=== PATIENT | female | born 2000 | race Caucasian/White ===

== ENCOUNTER 2025-07-01 08:40 | Emergency (ER) | payer BC, MEDICAID, SELFPAY ==
[2025-07-01 08:53] VITALS: BP 132/82; PULSE 95; RESP 17; TEMP 36.9; O2SAT 100; BMI 32.0
[2025-07-01 09:12] LABS: Hematocrit 39.7 % (36-47); Hemoglobin 13.30 g/dL (11.27-16.99); Mean Corpuscular HGB Conc 33.5 g/dL (30-55); Mean Corpuscular Hemoglobin 30.4 pg (27-33); Mean Corpuscular Volume 90.6 fl (85-98); Nucleated Red Blood Cells % 0 %; Platelet Count 254 10^3/cmm (157-399); Red Blood Count 4.38 10^6/uL (3.85-5.65); White Blood Count 9.09 10^3/uL (3.29-11.43)
--- NOTE | 2025-07-01 09:16 | ED_ITS ---
HPI - Headache 2 General: Chief Complaint: Headache Stated Complaint: Servre Headach, fever Time Seen by Provider: 07/01/25 08:49 History of Present Illness: 24-year-old female presents emergency ro om with complaint of headache began last night its more on the left side of her head no trauma. She has tried [id number] medications no relief she has had some photophobia and photophobia. She thought she might possibly be as well she has previously had a tubal ligation. No vomiting no diarrhea no fever sweats or chills. No associated neck pain Associated symptoms: Deny chest pain, fever(s) or rash Related Data Previous Rx's ?Medication ?Instructions ?Recorded promethazine 25 mg tablet 25 mg PO Q6H PRN nausea and 07/01/25 vomiting #20 tabs Allergies Allergy/AdvReac Type Severity Reaction Status Date / Time No Known Allergies Allergy Verified 07/01/25 08:56 Review of Systems 2 Const: Denies: fever(s) or chills Card: Denies: chest pain Resp: Denies: dyspnea GI: Denies: abdominal pain : Denies: dysuria, urinary frequency or urinary urgency Musc: Denies: neck pain or back pain Skin/Breast: Denies: rash Physical Exam 2 Const: COMMON NORMALS: no acute distress GENERAL APPEARANCE: cooperative and comfortable ORIENTATION/CONSCIOUSNESS: Yes awake, Yes oriented to person, Yes oriented to place and Yes oriented to time HENMT: COMMON NORMALS: normocephalic, atraumatic and hearing grossly normal bilaterally HEAD & SCALP: normocephalic and atraumatic Resp: COMMON NORMALS: normal respiratory effort, No retractions, No use of accessory muscles and clear to auscultation bilaterally AUSCULTATION: clear to auscultation bilaterally Cardio: COMMON NORMALS: regular rate, regular rhythm and No murmurs present (Cardio) RATE: regular rate RHYTHM: regular rhythm GI: COMMON NORMALS: Soft to palpation and No hepatosplenomegaly present A USCULTATION: Yes normoactive bowel sounds PALPATION: Yes Soft to palpation, No Tenderness to palpation present (GI), No Guarding due to palpation present (GI) and Yes No hepatosplenomegaly present Extremity: COMMON NORMALS: normal to inspection, capillary refill normal, no clubbing, cyanosis or edema, no calf tenderness and no pedal edema Neuro: SENSORIUM/ORIENTATION: Yes oriented to person, Yes oriented to place and Yes oriented to time Skin: COMMON NORMALS: no rashes or lesions noted GENERAL SKIN EXAM: no rashes or lesions noted Course 2 Vital Signs: Vital signs: Vital Signs Temperature 98.4 F 07/01/25 08:53 Pulse Rate 74 07/01/25 11:15 Respiratory Rate 17 07/01/25 08:53 Blood Pressure 111/65 07/01/25 11:15 Pulse Oximetry 100 07/01/25 11:15 Oxygen Delivery Me thod Room Air 07/01/25 08:53 MDM - Headache Medical Decision Making Symptoms improved after IV fluids Toradol and promethazine will discharge patient home with promethazine to use as needed along with Tylenol and ibuprofen rest of the remainder the day follow-up with your primary care doctor if has persistent headaches reviewed labs with the patient. negative Medical Records I reviewed the patient's medical records. Lab Data I reviewed the patient's lab results. 07/01/25 09:05 07/01/25 09:05 Laboratory Results WBC 9.09 10^3/uL (3.29-11.43) 07/01/25 09:05 RBC 4.38 10^6/uL (3.85-5.65) 07/01/25 09:05 Hgb 13.30 g/dL (11.27-16.99) 07/01/25 09:05 Hct 39.7 % (36-47) 07/01/25 09:05 MCV 90.6 fl (85-98) 07/01/25 09:05 MCH 30.4 pg (27-33) 07/01/25 09:05 MCHC 33.5 g/dL (30-55) 07/01/25 09:05 RDW 11.9 % (12.1-15.1) L 07/01/25 09:05 Plt Count 254 10^3/cmm (157-399) 07/01/25 09:05 MPV 9.4 fL (7.4-10.4) 07/01/25 09:05 Neut % (Auto) 71.3 % 07/01/25 09:05 Lymph % (Auto) 21.5 % 07/01/25 09:05 [place] % (Auto) 5.7 % 07/01/25 09:05 Eos % (Auto) 1.0 % 07/01/25 09:05 Baso % (Auto) 0.3 % 07/01/25 09:05 Neut # (Auto) 6.48 10^3/uL (1.8-7.7) 07/01/25 09:05 Lymph # (Auto) 2.0 10^3/uL (0.8-4.8) 07/01/25 09:05 [place] # (Auto) 0.5 10^3/uL (0.2-0.9) 07/01/25 09:05 Eos # (Auto) 0.1 10^3/uL (0.0-0.8) 07/01/25 09:05 Baso # (Auto) 0.0 10^3/uL (0.0-0.1) 07/01/25 09:05 Nucleated RBC % (auto) 0 % 07/01/25 09:05 Nucleated RBCs # 0.0 /100WBC 07/01/25 09:05 Sodium 138 mmol/L (136-145) 07/01/25 09:05 Potassium 4.3 mmol/L (3.5-5.1) 07/01/25 09:05 Chloride 104 mmol/L (98-107) 07/01/25 09:05 Carbon Dioxide 23 mmol/L (22-29) 07/01/25 09:05 Anion Gap 15.3 (5-19) 07/01/25 09:05 BUN 10 mg/dL (6-20) 07/01/25 09:05 Creatinine 0.7 mg/dL (0.5-0.9) 07/01/25 09:05 GFR Calculation 102.8 mL/min (90-130) 07/01/25 09:05 Glucose 96 mg/dL (65-115) 07/01/25 09:05 Calculated Osmolality 285 mOsm/kg (285-295) 07/01/25 09:05 Calcium 9.5 mg/dL (8.5-10.5) 07/01/25 09:05 Total Bilirubin 1.4 mg/dL (0.15-1.2) H 07/01/25 09:05 AST 10 U/L (0-32) 07/01/25 09:05 ALT 10 U/L (0-33) 07/01/25 09:05 Alkaline Phosphatase 73 U/L (35-105) 07/01/25 09:05 Total Protein 7.8 g/dL (6.6-8.7) 07/01/25 09:05 Albumin 4.6 g/dL (3.5-5.2) 07/01/25 09:05 Globulin 3.2 g/dL (1.3-4.6) 07/01/25 09:05 HCG, Qual Negative (Negative) 07/01/25 09:05 Urine Color Yellow (Yellow) 07/01/25 09:10 Urine Appearance Cloudy (CLEAR) A 07/01/25 09:10 Urine pH 5.5 (5-7) 07/01/25 09:10 Ur Specific [place] 1.024 (1.005-1.030) 07/01/25 09:10 Urine Protein Negative (Negative) 07/01/25 09:10 Urine Glucose (UA) Negative (Normal) 07/01/25 09:10 Urine Ketones Trace (Negative) 07/01/25 09:10 Urine Blood Negative (Negative) 07/01/25 09:10 Urine Nitrate Negative (Negative) 07/01/25 09:10 Urine Bilirubin Negative (Negative) 07/01/25 09:10 Urine Urobilinogen 1.0 mg/dL (Negative) 07/01/25 09:10 Ur Leukocyte Esterase 1+ (Negative) A 07/01/25 09:10 Urine RBC 0-4 /hpf (0-2) H 07/01/25 09:10 Urine WBC 10-15 /hpf (0-5) H 07/01/25 09:10 Ur Squamous Epith Cells 25-40 /hpf (0-5) H 07/01/25 09:10 Amorphous Sediment Not Reportable 07/01/25 09:10 Urine Bacteria 1+ /hpf (NONE) H 07/01/25 09:10 Hyaline Casts 5-10 /lpf H 07/01/25 09:10 Coarse Granular Casts 0-4 /lpf H 07/01/25 09:10 Urine Mucus 1+ /hpf 07/01/25 09:10 No radiology studies performed this visit Discharge Plan Discharge Patient Disposition: Home Clinical Impression: Headache Condition: Stable Prescriptions: New promethazine 25 mg tablet 25 mg PO Q6H PRN (Reason: nausea and vomiting) Qty: 20 0RF Discharge Orders: Discharge ED (Routine); Ordered 07/01/25 Ordered By: Best Duran Referrals: [facility], [Primary Care Provider] Discharge Diet: Usual diet Discharge Activity: Increase activity as tolerated Patient Instructions: Opioid Safety, Pain Management, Patient Portal & Jadon Instructions Activity Restrictions/Additional Instructions: Thank you for choosing [facility] for your healthcare needs today. It is very important that you follow up as instructed or that you return to the Emergency Department should you have concerns or if your condition changes or worsens in any way. You were seen in the emergency room with a complaint of a headache. Headache improved with medications and fluids given. [place] exam is otherwise unremarkable labs are unremarkable discharge home you can use promethazine Tylenol ibuprofen for the headaches recommend you rest the rest of today if your headache persists or recurs follow-up with your primary care doctor Stand Alone Forms: Work/School Release Print Language: Kinyarwanda Coding Level of Care Code ED Home Health Care Worker for Allen Perez
[2025-07-01 09:29] LABS: Alanine Aminotransferase 10 U/L (0-33); Albumin Level 4.6 g/dL (3.5-5.2); Alkaline Phosphatase 73 U/L (35-105); Anion Gap 15.3 (5-19); Aspartate Amino Transferase 10 U/L (0-32); Blood Urea Nitrogen 10 mg/dL (6-20); Calcium 9.5 mg/dL (8.5-10.5); Carbon Dioxide 23 mmol/L (22-29); Chloride 104 mmol/L (98-107); Creatinine Clr Calc Pharmacy 120.9251; Globulin 3.2 g/dL (1.3-4.6); Glucose 96 mg/dL (65-115); Osmolality Calculated 285 mOsm/kg (285-295); Potassium 4.3 mmol/L (3.5-5.1); Sodium 138 mmol/L (136-145); Total Protein 7.8 g/dL (6.6-8.7)
[2025-07-01 09:32] LABS: Glucose Urine UA Negative (Normal); Nitrate Urine Negative (Negative); Specific Gravity, Urine 1.024 (1.005-1.030)
[2025-07-01 09:46] LABS: Add Urine Microscopic? YES; UA Manual Slide Review YES
[2025-07-01 09:47] LABS: HCG, Serum Qual Negative (Negative)
[2025-07-01] MEDS: promethazine 25 mg/mL SDV 1 mL IM (10:41)
[2025-07-01 11:15] VITALS: BP 111/65; PULSE 74; O2SAT 100
== END 2025-07-01 11:15 | disposition home or self-care (01) ==
PROVIDERS: Emergency Provider Family Medicine
DX: R51.9 Headache, unspecified (principal)
CPT/HCPCS: 80053; 81001; 84703; 85025; 96361; 96372; 96374; 99284; J1885; J2550; J7030